=== PATIENT | male | born 1945 | race African-American/Black ===

== ENCOUNTER 2019-07-27 15:01 | Emergency (ER) | payer OTHER ==
[2019-07-27] MEDS ORDERED: Bacitracin 1 PK ONE (16:16)
== END 2019-07-27 16:23 | disposition home or self-care (01) ==
LOC: ERS 15:01
DX: S61.210A Laceration without foreign body of right index finger without damage to nail, initial encounter (principal); I10 Essential (primary) hypertension; Z87.891 Personal history of nicotine dependence; X58.XXXA Exposure to other specified factors, initial encounter
CPT/HCPCS: 99282

== ENCOUNTER 2021-07-10 13:28 | Emergency (ER) | payer OTHER | END 2021-07-10 17:28 | disposition home or self-care (01) | LOC: ERS 13:28 | DX: I77.1 Stricture of artery (principal); I73.9 Peripheral vascular disease, unspecified; I10 Essential (primary) hypertension; Z87.891 Personal history of nicotine dependence | CPT/HCPCS: 93923 ==

== ENCOUNTER 2021-07-22 13:44 | Emergency (ER) | payer OTHER ==
[~2021-07-22 13:44] MED LIST: Iopamidol-370 76% 500 ML 1 ML ONE
[2021-07-22 17:19] LABS: #Basophils 0.1 thou/uL (0.0-0.2); #Eosinphils 0.2 thou/uL (0.0-0.7); #Lymphocytes 3.2 thou/uL (1.20-3.40); #Monocytes 0.6 thou/uL (0.11-0.59); #Neutrophils 4.9 thou/uL (1.40-6.50); %Basophils 1.1 % (0.0-1.0); %Eosinophils 1.9 % (0.0-10.0); %Lymphocytes 35.8 % (21.0-51.0); %Monocytes 6.5 % (0.0-10.0); %Neutrophils 54.8 % (42.0-75.0); Mean Corpuscular HGB CONC 32.3 g/dL (32.0-36.0); Mean Corpuscular Hemoglobin 32.2 pg (27.0-31.0); Mean Corpuscular Volume 99.8 fL (78.0-98.0); Mean Platelet Volume 8.1 fL (7.4-10.4); Platelet Count 276 thou/uL (130-400); RBC Distribution Width 14.6 % (11.5-14.5); Red Blood Cell (RBC) Count 3.73 mill/uL (4.70-6.10); White Blood Cell (WBC) Count 8.9 thou/uL (4.8-10.8)
[2021-07-22 17:31] LABS: INR-International Normal Ratio 2.5; PTT 52.1 sec (22.9-36.1); Prothrombin Time 27.1 sec (12.0-14.7)
[2021-07-22 17:45] LABS: ALT (SGPT) 18 U/L (8-55); AST (SGOT) 20 U/L (5-34); Alkaline Phosphatase 102 U/L (40-110); Anion Gap 12 mmol/L (10-20); BUN (Urea Nitrogen) 10 mg/dL (8.4-25.7); Bilirubin, Total 0.8 mg/dL (0.2-1.2); Calc. Creatinine Clearance 0 mL/min (70-130); Calcium 10.1 mg/dL (7.8-10.44); Carbon Dioxide 24 mmol/L (23-31); Chloride 105 mmol/L (98-107); Globulin 3.2 g/dL (2.4-3.5); Glucose 102 mg/dL (83-110); Protein, Total 7.2 g/dL (5.8-8.1); Sodium 137 mmol/L (136-145)
[2021-07-22] MEDS ORDERED: Morphine 4 MG/ML VIAL ONE (18:02)
[2021-07-22] MEDS ORDERED: VANCOMYCIN 2 GRAM/400 ML BAG 2 GM in Premix Bag 1 BAG IVPB SCH (20:00)
== END 2021-07-22 20:38 ==
LOC: ERS 13:44
DX: I77.89 Other specified disorders of arteries and arterioles (principal); I10 Essential (primary) hypertension; Z87.891 Personal history of nicotine dependence; Z79.01 Long term (current) use of anticoagulants
CPT/HCPCS: 36415; 71045; 75635; 80053; 85025; 85610; 85730; 93005; 93923; 94760; 96374; 96375; J2270; J3370; Q9967

== ENCOUNTER 2024-06-10 10:57 | Emergency (ER) | payer OTHER | END 2024-06-10 13:16 | disposition home or self-care (01) | LOC: ERS 10:57 | DX: S80.251A Superficial foreign body, right knee, initial encounter (principal); I10 Essential (primary) hypertension; Z87.891 Personal history of nicotine dependence; X58.XXXA Exposure to other specified factors, initial encounter | CPT/HCPCS: 28190 ==